=== PATIENT | female | born 1970 | race American Indian/Alaskan Native ===

== ENCOUNTER 2016-10-02 22:20 | Emergency (ER) | payer SELFPAY ==
[2016-10-02 23:31] LABS: Basophils % (Auto) 0.8 % (0.0-1.8); Eosinophils % (Auto) 1.7 % (0.0-4.3); Hematocrit 37.6 % (30.3-42.9); Hemoglobin 11.7 gm/dl (10.1-14.3); Mean Corpuscular HGB Conc 31 % (30-34); Mean Corpuscular Volume 75 fl (79-97); Platelet Count 227 K/mm3 (140-440); Red Blood Count 4.99 M/mm3 (3.65-5.03); Red Cell Distribution Width 17.2 % (13.2-15.2)
[2016-10-02 23:38] LABS: INR 0.97 (0.87-1.13)
[2016-10-02 23:51] LABS: Alanine Aminotransferase 17 units/L (7-56); Albumin 4.1 g/dL (3.9-5); Albumin/Globulin Ratio 1.1 %; Alkaline Phosphatase 68 units/L (35-129); Anion Gap 18 mmol/L; Blood Urea Nitrogen 14 mg/dL (7-17); Calcium 8.8 mg/dL (8.4-10.2); Carbon Dioxide 24 mmol/L (22-30); Chloride 104.1 mmol/L (98-107); Glucose 99 mg/dL (65-100); Lipase 17 units/L (13-60); Potassium 3.9 mmol/L (3.6-5.0); Sodium 142 mmol/L (137-145); Total Protein 7.8 g/dL (6.3-8.2)
[2016-10-03 00:12] LABS: Mean Corpuscular Hemoglobin 24 pg (28-32)
[2016-10-03 00:37] LABS: Bilirubin,Urine NEG (Negative); Blood,Urine NEG (Negative); Ketones,Urine NEG (Negative); Leukocyte Esterase,Urine NEG (Negative); Mucus,Urine 1+ /HPF; Nitrite,Urine NEG (Negative); Urobilinogen,Urine < 2.0 mg/dL (<2.0)
[2016-10-03 02:31] VITALS: BP 168/87
== END 2016-10-03 05:08 | disposition left against medical advice (07) ==
LOC: ED 22:20
DX: R10.9 Unspecified abdominal pain (principal); K59.00 Constipation, unspecified; R06.02 Shortness of breath; I10 Essential (primary) hypertension; Z53.21 Procedure and treatment not carried out due to patient leaving prior to being seen by health care provider
CPT/HCPCS: 36415; 80053; 81001; 83690; 84484; 84703; 85025; 85610; 85730; 93005; 93010

== ENCOUNTER 2018-10-16 10:13 | Emergency (ER) | payer OTHER ==
[2018-10-16 10:21] VITALS: BP 155/73
--- NOTE | 2018-10-16 11:16 | Emergency Department Report ---
ED General Adult HPI - General Chief complaint: Upper Respiratory Infection Stated complaint: HEADACHE/SORE THROAT/FEVER Time Seen by Provider: 10/16/18 10:53 Source: patient Mode of arrival: Ambulatory Limitations: No Limitations - History of Present Illness Initial comments: Patient is a 48-year-old female who is presenting with several complaints. Patient states for the last 4 days she has had a headache and facial pain. Patient states the pain is 8 out of 10 in severity. She is very congested and having difficulty breathing. Patient also is complaining of sore throat and chills. Patient has a minimal cough but does feel some postnasal drip. Patient has no nausea vomiting or diarrhea. Patient states that head and face pain is mostly mid face just above the nose. - Related Data Home Medications Medication Instructions Recorded Confirmed Last Taken Lisinopril/Hydrochlorothiazide 1 tab PO DAILY 08/08/13 08/08/13 08/07/13 [Zestoretic 10-12.5 mg] Previous Rx's Medication Instructions Recorded Last Taken Type Ciprofloxacin HCl [Cipro] 500 mg PO Q12H #14 tab 08/08/13 Unknown Rx HYDROcodone/APAP 10-325 [[place] 1 each PO Q6HR PRN #20 tablet 08/08/13 Unknown Rx 10-325 mg TAB] metroNIDAZOLE [Flagyl] 500 mg PO Q8H #21 tablet 08/08/13 Unknown Rx Amoxicillin/Potassium Clav 1 each PO BID #20 tablet 10/16/18 Unknown Rx [Augmentin 875-125 Tablet] Fluticasone [Flonase] 1 spray NS QDAY #1 bottle 10/16/18 Unknown Rx Ketorolac [Toradol] 10 mg PO Q6H PRN #12 tablet 10/16/18 Unknown Rx predniSONE [Deltasone] 20 mg PO QDAY #5 tab 10/16/18 Unknown Rx traMADol [Ultram] 50 mg PO Q6HR PRN #12 tablet 10/16/18 Unknown Rx Allergies Allergy/AdvReac Type Severity Reaction Status Date / Time No Known Allergies Allergy Unverified 08/08/13 08:51 ED Review of Systems ROS: Stated complaint: HEADACHE/SORE THROAT/FEVER Other details as noted in HPI Comment: All other systems reviewed and negative ED Past Medical Hx - Past Medical History Previous Medical History?: Yes Hx Hypertension: Yes Additional medical history: Obesity. Colitis - Surgical History Past Surgical History?: Yes Additional Surgical History: bowel obstruction - Social History Smoking Status: Never Smoker Substance Use Type: Alcohol, Prescribed - Medications Home Medications: Home Medications Medication Instructions Recorded Confirmed Last Taken Type Ciprofloxacin HCl [Cipro] 500 mg PO Q12H #14 tab 08/08/13 Unknown Rx HYDROcodone/APAP 10-325 [[place] 1 each PO Q6HR PRN #20 tablet 08/08/13 Unknown Rx 10-325 mg TAB] Lisinopril/Hydrochlorothiazide 1 tab PO DAILY 08/08/13 08/08/13 08/07/13 History [Zestoretic 10-12.5 mg] metroNIDAZOLE [Flagyl] 500 mg PO Q8H #21 tablet 08/08/13 Unknown Rx Amoxicillin/Potassium Clav 1 each PO BID #20 tablet 10/16/18 Unknown Rx [Augmentin 875-125 Tablet] Fluticasone [Flonase] 1 spray NS QDAY #1 bottle 10/16/18 Unknown Rx Ketorolac [Toradol] 10 mg PO Q6H PRN #12 tablet 10/16/18 Unknown Rx predniSONE [Deltasone] 20 mg PO QDAY #5 tab 10/16/18 Unknown Rx traMADol [Ultram] 50 mg PO Q6HR PRN #12 tablet 10/16/18 Unknown Rx ED Physical Exam - General Limitations: No Limitations General appearance: alert, in no apparent distress - Head Head exam: Present: atraumatic, normocephalic, other (tenderness mid face just above the nose as well as the lateral maxillary sinuses) - Eye Eye exam: Present: normal appearance, PERRL, EOMI - ENT ENT exam: Present: mucous membranes moist - Expanded ENT Exam Expanded Mouth exam: Present: tongue normal. Absent: drooling, tongue elevation Throat exam: Positive: tonsillar erythema, tonsillomegaly. Negative: tonsillar exudate - Neck Neck exam: Present: normal inspection. Absent: lymphadenopathy - Respiratory Respiratory exam: Present: normal lung sounds bilaterally. Absent: respiratory distress, wheezes, rales, rhonchi - Cardiovascular Cardiovascular Exam: Present: regular rate, normal rhythm. Absent: systolic murmur, diastolic murmur, rubs, gallop - GI/Abdominal GI/Abdominal exam: Present: soft, normal bowel sounds - Extremities Exam Extremities exam: Present: normal inspection - Back Exam Back exam: Present: normal inspection - Neurological Exam Neurological exam: Present: alert, oriented X3 - Psychiatric Psychiatric exam: Present: normal affect, normal mood - Skin Skin exam: Present: warm, dry, intact, normal color. Absent: rash ED Course Vital Signs 10/16/18 10:18 Temperature 98.8 F Pulse Rate 71 Respiratory 18 Rate Blood Pressure 155/73 O2 Sat by Pulse 99 Oximetry ED Medical Decision Making - Medical Decision Making Patient clinically with acute sinusitis with mild pharyngitis present as well. Patient started on Augmentin and occasions for symptomatic relief and she'll be discharged home. Critical care attestation.: If time is entered above; I have spent that time in minutes in the direct care of this critically ill patient, excluding procedure time. ED Disposition Clinical Impression: Acute bacterial sinusitis, Acute bacterial tonsillitis Disposition: - TO HOME OR SELFCARE Is pt being admited?: No Does the pt Need Aspirin: No Condition: Stable Instructions: Acute Bacterial Rhinosinusitis (ED) Referrals: YVES ROACH MD [Referring] - 3-5 Days Time of Disposition: 11:16
== END 2018-10-16 11:31 | disposition home or self-care (01) ==
LOC: ED 10:13
DX: J01.00 Acute maxillary sinusitis, unspecified (principal); B96.89 Other specified bacterial agents as the cause of diseases classified elsewhere; J03.90 Acute tonsillitis, unspecified; I10 Essential (primary) hypertension; Z79.899 Other long term (current) drug therapy
CPT/HCPCS: 99281

== ENCOUNTER 2019-03-16 17:01 | Emergency (ER) | payer OTHER ==
[2019-03-16 19:22] LABS: Bilirubin,Urine NEG (Negative); Blood,Urine NEG (Negative); Color,Urine Yellow (Yellow); Mucus,Urine 1+ /HPF; Protein,Urine <15 mg/dL mg/dL (Negative); Urobilinogen,Urine < 2.0 mg/dL (<2.0); WBC,Urine < 1.0 /HPF (0.0-6.0)
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
[2019-03-16 20:31] LABS: Basophils # (Auto) 0.1 K/mm3 (0.0-0.1); Basophils % (Auto) 1.2 % (0.0-1.8); Eosinophils # (Auto) 0.1 K/mm3 (0.0-0.4); Eosinophils % (Auto) 1.7 % (0.0-4.3); Hematocrit 38.6 % (30.3-42.9); Hemoglobin 12.5 gm/dl (10.1-14.3); Lymphocytes # (Auto) 2.2 K/mm3 (1.2-5.4); Lymphocytes % (Auto) 45.1 % (13.4-35.0); Mean Corpuscular HGB Conc 32 % (30-34); Mean Corpuscular Volume 78 fl (79-97); Monocytes # (Auto) 0.3 K/mm3 (0.0-0.8); Monocytes % (Auto) 6.2 % (0.0-7.3); Platelet Count 217 K/mm3 (140-440); Red Blood Count 4.94 M/mm3 (3.65-5.03); Red Cell Distribution Width 19.3 % (13.2-15.2)
--- NOTE | 2019-03-16 21:07 | Ultrasound Report ---
US transvaginal, US pelvic complete INDICATION / CLINICAL INFORMATION: ovarian cyst. COMPARISON: None available. FINDINGS: Transabdominal and transvaginal imaging was performed. The uterus measures 10.6 x 5.6 x 6.9 cm and contains a 1.8 cm hypoechoic lesion in the fundus, likely a fibroid. Endometrial echo complex measures 5 mm, within normal limits. Ovaries are symmetric and normal in size. Small bilateral ovarian follicles are noted. Flow is seen t o both ovaries. No adnexal lesions are seen. No free fluid. IMPRESSION: 1. No acute findings. 2. 1.8 cm uterine fundal fibroid. 3. Subcentimeter left ovarian cysts. 1.3 cm right ovarian cyst. Signer Name: Neil Rivera MD Signed: 03/16/2019 9:03 PM Workstation Name: [id number]
[2019-03-16 21:48] VITALS: BP 169/86
== END 2019-03-16 21:48 | disposition home or self-care (01) ==
LOC: ED 17:01
DX: N83.202 Unspecified ovarian cyst, left side (principal); D25.9 Leiomyoma of uterus, unspecified; I10 Essential (primary) hypertension; Z98.890 Other specified postprocedural states; Z79.899 Other long term (current) drug therapy
CPT/HCPCS: 36415; 76830; 76856; 81001; 84703; 85025